=== PATIENT | male | born 1995 | race Two or more races ===

== ENCOUNTER 2019-06-05 17:58 | Emergency (ER) | payer SELFPAY ==
[~2019-06-05] VITALS: Ht 175.3 cm; Wt 68.0 kg
[2019-06-05] MEDS ORDERED: SODIUM CHLORIDE 0.9% 1,000 ML IV ONE (18:39)
[2019-06-05] MEDS ORDERED: ONDANSETRON HCL 4MG/2ML INJ IV STA (18:39)
[2019-06-05 19:03] LABS: BASOPHILS % 0.2 % (0.0-2.0); HEMATOCRIT. 45.2 % (42.0-52.0); HEMOGLOBIN. 15.9 g/dL (14.0-18.0); LYMPHOCYTES % 8.1 % (20.0-50.0); MEAN CORPUSCULAR VOLUME 91.3 fL (80.0-94.0); MEAN PLATELET VOLUME 8.7 fl (7.4-10.4); MONOCYTES % 7.2 % (2.0-8.0); NEUTROPHILS % 84.5 % (40.0-76.0); PLATELET 173 x1000/uL (130-400); RED BLOOD CELL COUNT 4.95 mill/uL (4.7-6.1); RED CELL DISTRIBUTION WIDTH 12.6 % (11.6-14.6)
[2019-06-05 19:06] LABS: CHLORIDE 112 mEq/L (98-107)
[2019-06-05 19:11] LABS: ETHANOL BLOOD < 10 mg/dL
[2019-06-05 19:27] LABS: CREATINE KINASE 1093 IU/L (39-308)
[2019-06-05 20:34] LABS: *AMPHETAMINES SCREEN URINE NEGATIVE (NEGATIVE); *BARBITURATES SCREEN URINE NEGATIVE (NEGATIVE); *BENZODIAZEPINES SCREEN URINE PRESUMTIVE POSITIVE (NEGATIVE)
[2019-06-05 20:35] LABS: *COCAINE SCREEN URINE NEGATIVE (NEGATIVE); CANNABINOID URINE SCREEN PRESUMTIVE POSITIVE (NEGATIVE); METHADONE URINE SCREEN NEGATIVE (NEGATIVE); OPIATES URINE SCREEN NEGATIVE (NEGATIVE); PHENCYCLIDINE URINE SCREEN NEGATIVE (NEGATIVE)
[2019-06-05 21:44] VITALS: BP 115/65
== END 2019-06-05 21:55 | disposition home or self-care (01) ==
LOC: ER 17:58
DX: G92 Toxic encephalopathy (principal); T88.7XXA Unspecified adverse effect of drug or medicament, initial encounter; T50.995A Adverse effect of other drugs, medicaments and biological substances, initial encounter; Y92.89 Other specified places as the place of occurrence of the external cause; R00.0 Tachycardia, unspecified; E86.0 Dehydration; M62.82 Rhabdomyolysis
CPT/HCPCS: 36415; 80053; 80305; 80320; 82550; 82553; 83690; 84443; 84484; 85025; 93005; 96361; 96374; 99284; J2405; J7030; G0480